=== PATIENT | male | born 2000 | race Caucasian/White ===

== ENCOUNTER 2022-03-27 18:48 | Emergency (ER) | payer SELFPAY ==
[2022-03-27] MEDS ORDERED: Boostrix 0.5 ML (Tdap) VIAL (>/=7 yrs of age) ONE (19:20)
[2022-03-27] MEDS ORDERED: Bacitracin 1 PK ONE (19:55)
== END 2022-03-27 20:19 | disposition home or self-care (01) ==
LOC: ERS 18:48
DX: S09.90XA Unspecified injury of head, initial encounter (principal); S90.411A Abrasion, right great toe, initial encounter; S80.212A Abrasion, left knee, initial encounter; Z23 Encounter for immunization; Y04.8XXA Assault by other bodily force, initial encounter
CPT/HCPCS: 70450; 90471; 90715